=== PATIENT | female | born 1970 | race African-American/Black ===

== ENCOUNTER 2016-06-21 23:12 | Emergency (ER) | payer MEDICAID | END 2016-06-22 00:01 | disposition home or self-care (01) | LOC: D.ER 23:12 | DX: M54.12 Radiculopathy, cervical region (principal); F17.200 Nicotine dependence, unspecified, uncomplicated; M06.9 Rheumatoid arthritis, unspecified ==

== ENCOUNTER 2019-03-13 08:26 | Emergency (ER) | payer MEDICAID ==
[~2019-03-13] VITALS: Ht 157.5 cm; Wt 95.5 kg
[2019-03-13 08:30] VITALS: Ht 157.5 cm; Wt 95.5 kg
[2019-03-13] MEDS ORDERED: KEFLEX500 MG PO (08:55)
[2019-03-13] MEDS ORDERED: TYLENOL W/CODEI1 TAB PO (08:55)
[2019-03-13 09:25] VITALS: BP 148/72
== END 2019-03-13 09:26 | disposition home or self-care (01) ==
LOC: D.ER 08:26
DX: K08.9 Disorder of teeth and supporting structures, unspecified (principal)